=== PATIENT | female | born 1960 | race African-American/Black ===

== ENCOUNTER 2021-02-11 14:11 | Inpatient (IN) | payer MEDICAID, OTHER ==
[2021-02-11] VITALS (12 sets, daily range): BP systolic 87–147; BP diastolic 59–109
[~2021-02-11] VITALS: Ht 152.4 cm; Wt 94.8 kg
[~2021-02-11 14:11] MED LIST: ETOMIDATE 2MG/ML 10ML VIAL IV ONE; SODIUM CHLORIDE 0.9% 10ML VIAL ONE; VECURONIUM BROMIDE 10 MG/VIAL IV ONE
[2021-02-11] MEDS ORDERED: SODIUM CHLORIDE 0.9% 1,000 ML IV ONE (14:45)
[2021-02-11 15:17] LABS: BASOPHILS % 0.3 % (0.0-2.0); HEMATOCRIT. 22.6 % (36.0-48.0); LYMPHOCYTES % 10.2 % (20.0-50.0); MEAN CORPUSCULAR HEMOGLOBIN 24.4 pg (28.0-32.0); MEAN CORPUSCULAR VOLUME 80.1 fL (81.0-99.0); MEAN PLATELET VOLUME 8.5 fl (7.4-10.4); MONOCYTES % 3.7 % (2.0-8.0); NEUTROPHILS % 85.8 % (40.0-76.0); PLATELET 325 x1000/uL (130-400); RED BLOOD CELL COUNT 2.82 mill/uL (4.2-5.4); RED CELL DISTRIBUTION WIDTH 17.6 % (11.6-14.6)
[2021-02-11 15:24] LABS: CHLORIDE 106 mEq/L (98-107)
[2021-02-11 15:30] LABS: HEMOGLOBIN. 6.9 g/dL (12.0-16.0)
[2021-02-11] MEDS ORDERED: NOREPINEPHRINE 8MG/250ML PMX 250 ML IV STA (15:37)
[2021-02-11] MEDS ORDERED: VANCOMYCIN 1 G PREMIX 200 ML IV ONE (15:45)
[2021-02-11] MEDS ORDERED: PHYTONADIONE 10MG/ML AMP SUBCUT ONE (15:45)
[2021-02-11] MEDS ORDERED: PIPERACILLIN/TAZ 3.375G PREMIX 50 ML IV ONE (15:45)
[2021-02-11] MEDS ORDERED: SODIUM CHLORIDE 0.9% 1000ML BAG (SEPSIS BOLUS) IV ONE (15:45)
[2021-02-11] MEDS ORDERED: NOREPINEPHRINE 8 MG in SODIUM CHLORIDE 0.9% 242 ML IV PRN (16:15)
[2021-02-11 16:24] LABS: INR 4.7
[2021-02-11 17:26] LABS: CLARITY URINE CLOUDY (CLEAR); COLOR URINE DARK YELLOW (YELLOW); KETONES URINE 1+ (NEGATIVE); LEUKOCYTE ESTERASE URINE TRACE (NEGATIVE); NITRITE URINE NEGATIVE (NEGATIVE); OCCULT BLOOD URINE NEGATIVE (NEGATIVE); PROTEIN URINE 2+ (NEGATIVE); SPECIFIC GRAVITY URINE 1.028 (1.005-1.030)
[2021-02-11] MEDS ORDERED: LORAZEPAM 0.5MG TABLET PO PRN (18:45)
[2021-02-11] MEDS ORDERED: HYDROCODONE/ACETAMINOPHEN 5/325MG TABLET PO PRN (18:45)
[2021-02-11] MEDS ORDERED: CLONIDINE 0.1MG TABLET PO PRN (18:45)
[2021-02-11] MEDS ORDERED: MORPHINE SULFATE 2 MG/ML CPJ (NOT FOR IM USE) IV PRN (18:45)
[2021-02-11] MEDS ORDERED: ONDANSETRON HCL 4MG/2ML INJ IV PRN (18:45)
[2021-02-11] MEDS ORDERED: ACETAMINOPHEN 325MG TABLET PO PRN ×2 (18:45)
[2021-02-11] MEDS ORDERED: DOCUSATE SODIUM 100MG CAPSULE PO PRN (18:45)
[2021-02-11] MEDS ORDERED: IPRATROPIUM/ALBUTEROL 0.5-3(2.5)MG/3ML NEB HHN PRN (18:45)
[2021-02-11] MEDS ORDERED: IOHEXOL-350 100 ML BOTTLE ONE (18:50)
[2021-02-11] MEDS ORDERED: ETOMIDATE 2MG/ML 10ML VIAL IV ONE (19:18)
[2021-02-11] MEDS ORDERED: SUCCINYLCHOLINE CHLORIDE 200MG/10ML IV ONE (19:19)
[2021-02-11] MEDS ORDERED: ROCURONIUM BROMIDE 10MG/ML VIAL 5ML IV ONE (19:19)
[2021-02-11] MEDS ORDERED: MIDAZOLAM HCL 2 MG/2 ML VIAL ONE (19:21)
[2021-02-11] MEDS ORDERED: FENTANYL CITRATE/PF 50MCG/ML 2ML VIAL ONE (19:21)
[2021-02-11] MEDS ORDERED: PHENYLEPHRINE HCL 10 MG/ML 1ML (IV VIAL) IV ONE (19:23)
[2021-02-11 19:30] LABS: BG BASE EXCESS -17.4 mmol/L (-2.0-2.0); BG CARBOXYHEMOGLOBIN 0.3 % (0.5-1.5); BG DEOXYHEMOGLOBIN 3.7 % (0.0-5.0); BG FRACTION INSPIRED OXYGEN 36; BG HCO3 ACT 9.2 mmol/L (22.0-26.0); BG METHEMOGLOBIN 0.2 % (0.0-1.5); BG OXYGEN SATURATION 96.3 % (92.0-98.5); BG OXYHEMOGLOBIN 95.8 % (94.0-97.0); BG PCO2 24.6 mmHg (35.0-45.0); BG PH 7.191 (7.350-7.450); BG PO2 96.2 mmHg (75.0-100.0); BG SAMPLE SITE RIGHT BRACHIAL; BG VENT MODE NASAL CANNULA
[2021-02-11] MEDS ORDERED: EPINEPHRINE 10 MG in SODIUM CHLORIDE 0.9% 250 ML IV PRN (19:30)
[2021-02-11] MEDS ORDERED: INSULIN REGULAR (HUMULIN R) 300UNITS/3ML VIAL SUBCUT ONE (19:30)
[2021-02-11] MEDS ORDERED: PROPOFOL 10MG/ML 100ML 100 ML IV ONE (19:45)
[2021-02-11] MEDS ORDERED: BACITRACIN 50,000 UNITS/VIAL ONE (19:57)
[2021-02-11] MEDS ORDERED: BUPIVACAINE HCL 0.5% (5MG/ML) 50ML ONE (19:57)
[2021-02-11] MEDS ORDERED: ALBUMIN HUMAN 12.5G/250ML (5%) IV ONE ×2 (20:22→20:23)
[2021-02-11] MEDS ORDERED: DESMOPRESSIN ACETATE 4MCG/ML AMP ONE (20:36)
[2021-02-11 20:46] LABS: HEMATOCRIT. 24.4 % (36.0-48.0); HEMOGLOBIN. 7.3 g/dL (12.0-16.0); MEAN CORPUSCULAR HEMOGLOBIN 29.2 pg (28.0-32.0); MEAN CORPUSCULAR VOLUME 96.9 fL (81.0-99.0); PLATELET 117 x1000/uL (130-400); RED BLOOD CELL COUNT 2.52 mill/uL (4.2-5.4)
[2021-02-11 21:22] LABS: PLATELET ESTIMATE SLIGHTLY DECREASED
[2021-02-11] MEDS ORDERED: DEXT 5%/0.45% NACL KCL 20MEQ/L 1,000 ML IV SCH (21:30)
[2021-02-11 21:31] LABS: INR 1.8; PARTIAL THROMBOPLASTIN TIME 69.1 sec (23.4-31.0); PROTHROMBIN TIME 18.1 sec (9.6-11.0)
[2021-02-11 22:08] LABS: BG BASE EXCESS -24.4 mmol/L (-2.0-2.0); BG CARBOXYHEMOGLOBIN 0.2 % (0.5-1.5); BG DEOXYHEMOGLOBIN 1.6 % (0.0-5.0); BG FRACTION INSPIRED OXYGEN 100; BG METHEMOGLOBIN 0.5 % (0.0-1.5); BG OXYGEN SATURATION 98.4 % (92.0-98.5); BG OXYHEMOGLOBIN 97.7 % (94.0-97.0); BG PCO2 44.2 mmHg (35.0-45.0); BG PH 6.876 (7.350-7.450); BG SAMPLE SITE ALINE; BG TOTAL HEMOGLOBIN 10.2 g/dL (12.0-18.0); BG VENT MODE VENT - AC
[2021-02-11] MEDS ORDERED: DEXT 5%/0.45% NACL 1000ML 1,000 ML IV SCH (22:15)
[2021-02-11] MEDS ORDERED: NOREPINEPHRINE 32 MG in DEXT 5% WATER 218 ML IV PRN (22:15)
[2021-02-11] MEDS ORDERED: SODIUM BICARBONATE 8.4% 1 MEQ/ML 50ML SYR IV NR (22:30)
[2021-02-11] MEDS ORDERED: DEXTROSE 50% WATER 50ML SYRINGE IV PRN (23:00)
[2021-02-11] MEDS ORDERED: SODIUM CHLORIDE 0.9% 1,000 ML IV SCH (23:15)
[2021-02-11] MEDS: INSULIN LISPRO 100 UNITS/ML SUBCUT SCH (23:55)
[2021-02-11] MEDS: BLOOD SUGAR DIAGNOSTIC STRIP TEST SCH (23:56)
[2021-02-12] VITALS (100 sets, daily range): BP systolic 84–276; BP diastolic 49–276
[2021-02-12 00:21] LABS: BG FRACTION INSPIRED OXYGEN 100; BG HCO3 ACT 11.3 mmol/L (22.0-26.0); BG PCO2 38.9 mmHg (35.0-45.0); BG PH 7.082 (7.350-7.450); BG PO2 165.5 mmHg (75.0-100.0); BG SAMPLE SITE ALINE; BG VENT MODE VENT - AC
[2021-02-12] MEDS ORDERED: SODIUM BICARBONATE 8.4% 1 MEQ/ML 50ML SYR IV NR (00:30)
[2021-02-12 01:47] LABS: HEMATOCRIT. 27.3 % (36.0-48.0); HEMOGLOBIN. 9.1 g/dL (12.0-16.0); MEAN CORPUSCULAR HEMOGLOBIN 28.3 pg (28.0-32.0); MEAN CORPUSCULAR VOLUME 84.8 fL (81.0-99.0); PLATELET 111 x1000/uL (130-400); RED BLOOD CELL COUNT 3.22 mill/uL (4.2-5.4); RED CELL DISTRIBUTION WIDTH 16.2 % (11.6-14.6)
[2021-02-12] MEDS: PHENYLEPHRINE 100 MG in DEXT 5% WATER 240 ML IV PRN ×3 (03:04→17:42)
[2021-02-12] MEDS: BLOOD SUGAR DIAGNOSTIC STRIP TEST SCH ×5 (04:02→20:21)
[2021-02-12] MEDS: INSULIN LISPRO 100 UNITS/ML SUBCUT SCH ×5 (04:02→21:45)
[2021-02-12] MEDS ORDERED: ALBUTEROL (0.083%) 2.5MG/3ML NEB HHN NR (05:45)
[2021-02-12] MEDS ORDERED: DEXTROSE 50% WATER 50ML SYRINGE IV NR (05:45)
[2021-02-12] MEDS ORDERED: INSULIN REGULAR (HUMULIN R) 300UNITS/3ML VIAL IV NR (05:45)
[2021-02-12] MEDS ORDERED: INSULIN LISPRO 100 UNITS/ML SUBCUT NR (05:45)
[2021-02-12] MEDS ORDERED: PIPERACILLIN/TAZOBACTAM 3.375 G in DEXT 5% WATER 100 ML IV SCH (06:00)
[2021-02-12] MEDS ORDERED: CALCIUM GLUCONATE 1GM PREMIX 50 ML IV NR (07:30)
[2021-02-12] MEDS: MORPHINE SULFATE 2 MG/ML CPJ (NOT FOR IM USE) IV PRN ×3 (07:43→14:13)
[2021-02-12] MEDS ORDERED: SODIUM POLYSTYRENE SULFONATE 15 G/60 ML BOT PR NR (08:00)
[2021-02-12] MEDS ORDERED: VANCOMYCIN 1500MG in DEXTROSE 5% WATER 250ML IV NR (08:00)
[2021-02-12] MEDS: PIPERACILLIN/TAZOBACTAM 2.25 G in DEXTROSE 5% WATER 50 ML IV SCH ×3 (08:11→19:55)
[2021-02-12] MEDS ORDERED: VANCOMYCIN 1 G PREMIX 200 ML IV SCH (09:00)
[2021-02-12] MEDS: PANTOPRAZOLE SODIUM 40 MG/VIAL IV SCH (09:04)
[2021-02-12 09:13] LABS: BG BASE EXCESS 1.5 mmol/L (-2.0-2.0); BG CARBOXYHEMOGLOBIN 0.2 % (0.5-1.5); BG DEOXYHEMOGLOBIN 0.9 % (0.0-5.0); BG FRACTION INSPIRED OXYGEN 100; BG HCO3 ACT 25.4 mmol/L (22.0-26.0); BG METHEMOGLOBIN 0.3 % (0.0-1.5); BG OXYGEN SATURATION 99.1 % (92.0-98.5); BG OXYHEMOGLOBIN 98.6 % (94.0-97.0); BG PCO2 36.9 mmHg (35.0-45.0); BG PH 7.455 (7.350-7.450); BG PO2 332.7 mmHg (75.0-100.0); BG SAMPLE SITE ALINE; BG TOTAL HEMOGLOBIN 9.6 g/dL (12.0-18.0); BG VENT MODE VENT - AC
[2021-02-12] MEDS ORDERED: SODIUM BICARBONATE 150 MEQ in DEXTROSE 5% WATER 1,000 ML IV SCH (11:00)
[2021-02-12 11:10] LABS: BASOPHILS % 0.1 % (0.0-2.0); HEMATOCRIT. 26.4 % (36.0-48.0); HEMOGLOBIN. 8.8 g/dL (12.0-16.0); LYMPHOCYTES % 7.6 % (20.0-50.0); MEAN CORPUSCULAR HEMOGLOBIN 28.1 pg (28.0-32.0); MEAN CORPUSCULAR VOLUME 84.1 fL (81.0-99.0); MONOCYTES % 8.6 % (2.0-8.0); NEUTROPHILS % 83.7 % (40.0-76.0); PLATELET 131 x1000/uL (130-400); RED BLOOD CELL COUNT 3.14 mill/uL (4.2-5.4); RED CELL DISTRIBUTION WIDTH 15.8 % (11.6-14.6)
[2021-02-12 14:26] LABS: PLATELET ESTIMATE SLIGHTLY DECREASED
[2021-02-12] MEDS ORDERED: PHENOL/SODIUM PHENOLATE 1.4% SRPAY 177ML MM PRN (16:30)
[2021-02-12] MEDS ORDERED: PROPOFOL 10MG/ML 100ML 100 ML IV PRN (16:30)
[2021-02-12] MEDS: SODIUM CHLORIDE 0.45% 1,000 ML IV SCH (17:43)
[2021-02-12 17:46] LABS: BASOPHILS % 0.3 % (0.0-2.0); HEMATOCRIT. 24.9 % (36.0-48.0); HEMOGLOBIN. 8.4 g/dL (12.0-16.0); LYMPHOCYTES % 9.4 % (20.0-50.0); MEAN CORPUSCULAR HEMOGLOBIN 28.2 pg (28.0-32.0); MEAN CORPUSCULAR VOLUME 83.5 fL (81.0-99.0); MEAN PLATELET VOLUME 8.6 fl (7.4-10.4); MONOCYTES % 8.4 % (2.0-8.0); NEUTROPHILS % 81.9 % (40.0-76.0); PLATELET 135 x1000/uL (130-400); RED BLOOD CELL COUNT 2.98 mill/uL (4.2-5.4); RED CELL DISTRIBUTION WIDTH 16.4 % (11.6-14.6)
[2021-02-12] MEDS: MORPHINE SULFATE 4 MG/ML CPJ (NOT FOR IM USE) IV PRN (19:56)
[2021-02-13] VITALS (98 sets, daily range): BP systolic 94–297; BP diastolic 50–294
[2021-02-13] MEDS: PIPERACILLIN/TAZOBACTAM 2.25 G in DEXTROSE 5% WATER 50 ML IV SCH ×4 (01:39→20:34)
[2021-02-13] MEDS: MORPHINE SULFATE 2 MG/ML CPJ (NOT FOR IM USE) IV PRN ×4 (01:40→15:38)
[2021-02-13 04:47] LABS: BASOPHILS % 0.2 % (0.0-2.0); EOSINOPHILS % 0.3 % (0.0-5.0); HEMATOCRIT. 22.2 % (36.0-48.0); HEMOGLOBIN. 7.3 g/dL (12.0-16.0); LYMPHOCYTES % 9.3 % (20.0-50.0); MEAN CORPUSCULAR HEMOGLOBIN 27.5 pg (28.0-32.0); MEAN CORPUSCULAR VOLUME 83.2 fL (81.0-99.0); MEAN PLATELET VOLUME 8.5 fl (7.4-10.4); MONOCYTES % 6.5 % (2.0-8.0); NEUTROPHILS % 83.7 % (40.0-76.0); PLATELET 132 x1000/uL (130-400); RED BLOOD CELL COUNT 2.66 mill/uL (4.2-5.4); RED CELL DISTRIBUTION WIDTH 16.2 % (11.6-14.6)
[2021-02-13 04:56] LABS: INR 1.6; PROTHROMBIN TIME 16.8 sec (9.6-11.0)
[2021-02-13 05:06] LABS: PHOSPHORUS 3.5 mg/dL (2.5-4.9)
[2021-02-13] MEDS: IPRATROPIUM/ALBUTEROL 0.5-3(2.5)MG/3ML NEB HHN SCH ×5 (05:07→20:32)
[2021-02-13] MEDS: BLOOD SUGAR DIAGNOSTIC STRIP TEST SCH ×5 (06:19→23:40)
[2021-02-13] MEDS: INSULIN LISPRO 100 UNITS/ML SUBCUT SCH ×5 (06:20→23:42)
[2021-02-13] MEDS: SODIUM CHLORIDE 0.45% 1,000 ML IV SCH ×3 (06:21→23:05)
[2021-02-13] MEDS ORDERED: MAGNESIUM 2 G PREMIX 50 ML IV ONE (06:30)
[2021-02-13] MEDS ORDERED: POTASSIUM CHLORIDE INJ 40 MEQ in DEXT 5% WATER 250 ML IV ONE (07:00)
[2021-02-13 08:39] LABS: BG BASE EXCESS 4.5 mmol/L (-2.0-2.0); BG CARBOXYHEMOGLOBIN 0.2 % (0.5-1.5); BG DEOXYHEMOGLOBIN 2.9 % (0.0-5.0); BG FRACTION INSPIRED OXYGEN 50; BG HCO3 ACT 28.1 mmol/L (22.0-26.0); BG METHEMOGLOBIN 0.3 % (0.0-1.5); BG OXYGEN SATURATION 97.1 % (92.0-98.5); BG OXYHEMOGLOBIN 96.6 % (94.0-97.0); BG PCO2 37.3 mmHg (35.0-45.0); BG PH 7.495 (7.350-7.450); BG PO2 92.1 mmHg (75.0-100.0); BG SAMPLE SITE ALINE; BG TOTAL HEMOGLOBIN 7.5 g/dL (12.0-18.0); BG VENT MODE VENT - AC
[2021-02-13] MEDS: PANTOPRAZOLE SODIUM 40 MG/VIAL IV SCH (09:19)
[2021-02-13 10:00] LABS: BG BASE EXCESS 2.3 mmol/L (-2.0-2.0); BG CARBOXYHEMOGLOBIN 0.2 % (0.5-1.5); BG DEOXYHEMOGLOBIN 3.1 % (0.0-5.0); BG FRACTION INSPIRED OXYGEN 40; BG HCO3 ACT 26.3 mmol/L (22.0-26.0); BG METHEMOGLOBIN 0.5 % (0.0-1.5); BG OXYGEN SATURATION 96.9 % (92.0-98.5); BG OXYHEMOGLOBIN 96.2 % (94.0-97.0); BG PCO2 37.6 mmHg (35.0-45.0); BG PH 7.462 (7.350-7.450); BG PO2 94.5 mmHg (75.0-100.0); BG SAMPLE SITE ALINE; BG TOTAL HEMOGLOBIN 6.6 g/dL (12.0-18.0); BG VENT MODE VENT - CPAP
[2021-02-13] MEDS: VANCOMYCIN 1 G PREMIX 200 ML IV SCH (11:54)
[2021-02-13] MEDS ORDERED: POTASSIUM CHLORIDE INJ 40 MEQ in DEXT 5% WATER 250 ML IV SCH (16:00)
[2021-02-13] MEDS: MORPHINE SULFATE 4 MG/ML CPJ (NOT FOR IM USE) IV PRN (19:11)
[2021-02-14] VITALS (57 sets, daily range): BP systolic 86–169; BP diastolic 33–137
[2021-02-14] MEDS: MORPHINE SULFATE 2 MG/ML CPJ (NOT FOR IM USE) IV PRN ×5 (00:33→20:18)
[2021-02-14 00:40] LABS: HEMATOCRIT 26.3 % (36.0-48.0)
[2021-02-14] MEDS: PIPERACILLIN/TAZOBACTAM 2.25 G in DEXTROSE 5% WATER 50 ML IV SCH ×4 (01:00→20:18)
[2021-02-14] MEDS: IPRATROPIUM/ALBUTEROL 0.5-3(2.5)MG/3ML NEB HHN SCH ×6 (01:05→21:08)
[2021-02-14 05:11] LABS: BASOPHILS % 0.4 % (0.0-2.0); EOSINOPHILS % 1.3 % (0.0-5.0); HEMATOCRIT. 26.9 % (36.0-48.0); LYMPHOCYTES % 12.2 % (20.0-50.0); MEAN CORPUSCULAR HEMOGLOBIN 28.5 pg (28.0-32.0); MEAN CORPUSCULAR VOLUME 85.4 fL (81.0-99.0); MEAN PLATELET VOLUME 8.4 fl (7.4-10.4); MONOCYTES % 5.6 % (2.0-8.0); NEUTROPHILS % 80.5 % (40.0-76.0); PLATELET 146 x1000/uL (130-400); RED BLOOD CELL COUNT 3.15 mill/uL (4.2-5.4); RED CELL DISTRIBUTION WIDTH 15.9 % (11.6-14.6)
[2021-02-14 05:13] LABS: CHLORIDE 110 mEq/L (98-107)
[2021-02-14 05:18] LABS: PHOSPHORUS 2.8 mg/dL (2.5-4.9)
[2021-02-14] MEDS: BLOOD SUGAR DIAGNOSTIC STRIP TEST SCH ×3 (05:34→17:24)
[2021-02-14] MEDS: INSULIN LISPRO 100 UNITS/ML SUBCUT SCH ×3 (05:35→17:25)
[2021-02-14] MEDS: PANTOPRAZOLE SODIUM 40 MG/VIAL IV SCH (08:36)
[2021-02-14] MEDS ORDERED: KCL 20MEQ/100ML PREMIX 100 ML IV NR (09:00)
[2021-02-14] MEDS ORDERED: GUAIFENESIN-DM 200MG-20MG/10ML UDC PO PRN (10:15)
[2021-02-14] MEDS: SODIUM CHLORIDE 0.45% 1,000 ML IV SCH ×2 (11:01→22:08)
[2021-02-14] MEDS: THROAT LOZENGES-BENZOCAINE/MENTH/CETYLPYRD CL LOZENGES MM PRN ×3 (11:49→20:18)
[2021-02-14] MEDS: VANCOMYCIN 1 G PREMIX 200 ML IV SCH (11:57)
[2021-02-14] MEDS: MORPHINE SULFATE 4 MG/ML CPJ (NOT FOR IM USE) IV PRN (11:58)
[2021-02-14] MEDS ORDERED: VANCOMYCIN 1250MG in DEXTROSE 5% WATER 250ML IV SCH (21:00)
[2021-02-15] VITALS (15 sets, daily range): BP systolic 138–163; BP diastolic 64–102
[2021-02-15] MEDS: IPRATROPIUM/ALBUTEROL 0.5-3(2.5)MG/3ML NEB HHN SCH ×6 (00:35→20:24)
[2021-02-15] MEDS: MORPHINE SULFATE 2 MG/ML CPJ (NOT FOR IM USE) IV PRN ×2 (00:59→06:24)
[2021-02-15] MEDS: PIPERACILLIN/TAZOBACTAM 2.25 G in DEXTROSE 5% WATER 50 ML IV SCH ×4 (02:15→20:17)
[2021-02-15] MEDS: INSULIN LISPRO 100 UNITS/ML SUBCUT SCH ×4 (06:00→17:05)
[2021-02-15] MEDS: BLOOD SUGAR DIAGNOSTIC STRIP TEST SCH ×5 (06:01→23:53)
[2021-02-15 07:03] LABS: BASOPHILS % 0.2 % (0.0-2.0); EOSINOPHILS % 3.1 % (0.0-5.0); HEMATOCRIT. 26.9 % (36.0-48.0); HEMOGLOBIN. 8.9 g/dL (12.0-16.0); LYMPHOCYTES % 11.7 % (20.0-50.0); MEAN CORPUSCULAR HEMOGLOBIN 28.4 pg (28.0-32.0); MEAN CORPUSCULAR VOLUME 86.4 fL (81.0-99.0); MONOCYTES % 8.8 % (2.0-8.0); NEUTROPHILS % 76.2 % (40.0-76.0); PLATELET 196 x1000/uL (130-400); RED BLOOD CELL COUNT 3.12 mill/uL (4.2-5.4); RED CELL DISTRIBUTION WIDTH 15.4 % (11.6-14.6)
[2021-02-15 08:22] LABS: CHLORIDE 108 mEq/L (98-107)
[2021-02-15 08:41] LABS: PHOSPHORUS 2.9 mg/dL (2.5-4.9)
[2021-02-15] MEDS: PANTOPRAZOLE SODIUM 40 MG/VIAL IV SCH (09:02)
[2021-02-15] MEDS ORDERED: VANCOMYCIN 1250MG in DEXTROSE 5% WATER 250ML IV SCH (11:30)
[2021-02-15] MEDS: MORPHINE SULFATE 4 MG/ML CPJ (NOT FOR IM USE) IV PRN ×2 (12:14→20:00)
[2021-02-15] MEDS: SODIUM CHLORIDE 0.45% 1,000 ML IV SCH (13:54)
[2021-02-16] VITALS (17 sets, daily range): BP systolic 148–169; BP diastolic 87–108
[2021-02-16] MEDS: INSULIN LISPRO 100 UNITS/ML SUBCUT SCH ×4 (00:05→18:00)
[2021-02-16] MEDS: MORPHINE SULFATE 2 MG/ML CPJ (NOT FOR IM USE) IV PRN ×4 (00:12→21:28)
[2021-02-16] MEDS: IPRATROPIUM/ALBUTEROL 0.5-3(2.5)MG/3ML NEB HHN SCH ×6 (00:15→21:00)
[2021-02-16] MEDS: SODIUM CHLORIDE 0.45% 1,000 ML IV SCH (01:36)
[2021-02-16] MEDS: PIPERACILLIN/TAZOBACTAM 2.25 G in DEXTROSE 5% WATER 50 ML IV SCH ×4 (01:37→20:15)
[2021-02-16 05:36] LABS: CHLORIDE 109 mEq/L (98-107)
[2021-02-16 05:39] LABS: BASOPHILS % 0.3 % (0.0-2.0); EOSINOPHILS % 3.5 % (0.0-5.0); HEMATOCRIT. 28.5 % (36.0-48.0); HEMOGLOBIN. 9.2 g/dL (12.0-16.0); LYMPHOCYTES % 14.1 % (20.0-50.0); MEAN CORPUSCULAR VOLUME 87.1 fL (81.0-99.0); MEAN PLATELET VOLUME 7.1 fl (7.4-10.4); MONOCYTES % 11.1 % (2.0-8.0); PLATELET 261 x1000/uL (130-400); RED BLOOD CELL COUNT 3.27 mill/uL (4.2-5.4); RED CELL DISTRIBUTION WIDTH 15.6 % (11.6-14.6)
[2021-02-16] MEDS: BLOOD SUGAR DIAGNOSTIC STRIP TEST SCH ×3 (06:20→18:00)
[2021-02-16] MEDS: PANTOPRAZOLE SODIUM 40 MG/VIAL IV SCH (08:20)
[2021-02-16] MEDS ORDERED: POTASSIUM CHLORIDE 20MEQ TABLET SR PO SCH (08:30)
[2021-02-16] MEDS: CLONIDINE 0.1MG TABLET PO PRN ×2 (10:03→20:34)
[2021-02-16] MEDS: THROAT LOZENGES-BENZOCAINE/MENTH/CETYLPYRD CL LOZENGES MM PRN (20:37)
[2021-02-17] MEDS: BLOOD SUGAR DIAGNOSTIC STRIP TEST SCH ×3 (00:12→12:00)
[2021-02-17] MEDS: INSULIN LISPRO 100 UNITS/ML SUBCUT SCH ×3 (00:24→12:00)
[2021-02-17] MEDS: IPRATROPIUM/ALBUTEROL 0.5-3(2.5)MG/3ML NEB HHN SCH ×3 (00:35→08:36)
[2021-02-17 01:43] VITALS: BP 150/86
[2021-02-17] MEDS: PIPERACILLIN/TAZOBACTAM 2.25 G in DEXTROSE 5% WATER 50 ML IV SCH (02:22)
[2021-02-17] MEDS ORDERED: MORPHINE SULFATE 2 MG/ML CPJ (NOT FOR IM USE) IV PRN (02:45)
[2021-02-17 03:43] VITALS: BP 131/86
[2021-02-17 05:43] VITALS: BP 142/80
[2021-02-17 06:49] LABS: BASOPHILS % 0.6 % (0.0-2.0); EOSINOPHILS % 5.6 % (0.0-5.0); HEMATOCRIT. 26.4 % (36.0-48.0); HEMOGLOBIN. 8.7 g/dL (12.0-16.0); LYMPHOCYTES % 17.5 % (20.0-50.0); MEAN CORPUSCULAR HEMOGLOBIN 28.5 pg (28.0-32.0); MEAN CORPUSCULAR VOLUME 86.8 fL (81.0-99.0); MEAN PLATELET VOLUME 7.3 fl (7.4-10.4); MONOCYTES % 11.9 % (2.0-8.0); NEUTROPHILS % 64.4 % (40.0-76.0); PLATELET 309 x1000/uL (130-400); RED BLOOD CELL COUNT 3.04 mill/uL (4.2-5.4); RED CELL DISTRIBUTION WIDTH 15.6 % (11.6-14.6)
[2021-02-17 06:56] LABS: PHOSPHORUS 3.9 mg/dL (2.5-4.9)
[2021-02-17 08:00] VITALS: BP 153/77
[2021-02-17] MEDS ORDERED: TOPUD PO (09:34)
[2021-02-17] MEDS: PANTOPRAZOLE SODIUM 40 MG/VIAL IV SCH (10:06)
[2021-02-17] MEDS: CLONIDINE 0.1MG TABLET PO PRN (10:07)
[2021-02-17 10:23] VITALS: BP 153/77
[2021-02-17 10:29] LABS: BG BASE EXCESS 0.9 mmol/L (-2.0-2.0); BG CARBOXYHEMOGLOBIN 0.1 % (0.5-1.5); BG DEOXYHEMOGLOBIN 8.7 % (0.0-5.0); BG FRACTION INSPIRED OXYGEN 21; BG HCO3 ACT 23.9 mmol/L (22.0-26.0); BG METHEMOGLOBIN 0.1 % (0.0-1.5); BG OXYGEN SATURATION 91.3 % (92.0-98.5); BG OXYHEMOGLOBIN 91.1 % (94.0-97.0); BG PCO2 32.2 mmHg (35.0-45.0); BG PH 7.489 (7.350-7.450); BG SAMPLE SITE LEFT BRACHIAL; BG VENT MODE ROOM AIR
== END 2021-02-17 12:35 | disposition home health service (06) | DRG 710 ==
LOC: ER 14:27 → MICUNO 16:36 → EDBEDREQ 16:41 → EDBEDREQSVC 16:41 → EDBEDREQTM 16:41 → ENRESERV 17:08 → ER 20:08 → 3WST 02-14 23:29
PROVIDERS: ADMIT Internal Medicine; ATTEND Internal Medicine
PROC: 0DBU0ZZ Excision of Omentum, Open Approach (ICD-10-PCS; principal; 2021-02-11)
PROC: 5A1945Z Respiratory Ventilation, 24-96 Consecutive Hours (ICD-10-PCS; 2021-02-11)
PROC: 06HY33Z Insertion of Infusion Device into Lower Vein, Percutaneous Approach (ICD-10-PCS; 2021-02-11)
PROC: 30233M1 Transfusion of Nonautologous Plasma Cryoprecipitate into Peripheral Vein, Percutaneous Approach (ICD-10-PCS; 2021-02-11)
PROC: 30233N1 Transfusion of Nonautologous Red Blood Cells into Peripheral Vein, Percutaneous Approach (ICD-10-PCS; 2021-02-11)
PROC: 0BH17EZ Insertion of Endotracheal Airway into Trachea, Via Natural or Artificial Opening (ICD-10-PCS; 2021-02-11)
DX: A41.9 Sepsis, unspecified organism (principal); J96.01 Acute respiratory failure with hypoxia; N17.0 Acute kidney failure with tubular necrosis; R57.8 Other shock; R65.21 Severe sepsis with septic shock; K66.1 Hemoperitoneum; D68.9 Coagulation defect, unspecified; E11.65 Type 2 diabetes mellitus with hyperglycemia; D69.6 Thrombocytopenia, unspecified; E87.2 Acidosis; E87.0 Hyperosmolality and hypernatremia; D50.0 Iron deficiency anemia secondary to blood loss (chronic); D72.821 Monocytosis (symptomatic); E87.5 Hyperkalemia; E87.6 Hypokalemia; F12.90 Cannabis use, unspecified, uncomplicated; F17.210 Nicotine dependence, cigarettes, uncomplicated; Z20.822 Contact with and (suspected) exposure to COVID-19; R80.9 Proteinuria, unspecified; R81 Glycosuria; R82.4 Acetonuria; T45.515A Adverse effect of anticoagulants, initial encounter; Z51.5 Encounter for palliative care; Z78.1 Physical restraint status; Z79.01 Long term (current) use of anticoagulants; Z79.84 Long term (current) use of oral hypoglycemic drugs; Z82.49 Family history of ischemic heart disease and other diseases of the circulatory system; Z86.718 Personal history of other venous thrombosis and embolism; Z95.828 Presence of other vascular implants and grafts; Y92.89 Other specified places as the place of occurrence of the external cause; N39.0 Urinary tract infection, site not specified; I10 Essential (primary) hypertension; Z86.69 Personal history of other diseases of the nervous system and sense organs
CPT/HCPCS: 36415; 36600; 71045; 74174; 76700; 80048; 80053; 80202; 81003; 82375; 82805; 82962; 83036; 83605; 83735; 84100; 84145; 84478; 84484; 85014; 85018; 85025; 86850; 86900; 86920; 86927; 87077; 87426; 88305; 93005; 93970; 94002; 94003; 94640; 97162; 97166; 99291; A6261; C9113; J0330; J0610; J1815; J2250; J2270; J2370; J2543; J2597; J2704; J3010; J3370; J3430; J3475; J3480; J3490; J7030; J7040; J7050; J7060; J7070; P9016; P9017; P9041; Q9967